=== PATIENT | male | born 1970 | race Caucasian/White ===

== ENCOUNTER 2017-11-14 12:25 | Emergency (ER) | payer SELFPAY ==
[~2017-11-14] VITALS: Ht 177.8 cm; Wt 70.5 kg
[~2017-11-14 12:25] MED LIST: BACT800T5 PO; IBUP-232 PO; VENTAER INH
[2017-11-14 12:38] VITALS: BP 165/98; PULSE 74; RESP 16; TEMP 98.6; O2SAT 98
--- NOTE | 2017-11-14 12:48 | PD ---
HPI Chief Complaint: Hypertension Time Seen by Provider: 12:43 Travel History International Travel<30 days: No Contact w/Intl Traveler<30days: No Traveled to known affect area: No History of Present Illness HPI Patient stated that approximately 2 years ago he was diagnosed with hypertension however after he went on weight loss program he was told he no longer needed to be taking lisinopril. Now over the last month or so he has noted when he checks his blood pressures routinely that he has been elevated in the 160s or so systolic and is concerned that he needs to get restarted on medication. He has denied any active symptoms. No alleviating or aggravating factors. No associated factors such as fever, cough, chest pain, shortness of breath, chest tightness, flank pain, abdominal pain, nausea, vomiting or diarrhea. No known drug allergy Past medical history significant for asthma, hepatitis C, smoking history one pack a day, substance abuse opiates amphetamines and cocaine. PFSH Past Medical History Asthma: Yes Diminished Hearing: No Hepatitis: Yes (HEP C) Respiratory: Yes (ASTHMA) Immunizations Current: Yes Social History Alcohol Use: Yes (DAILY) Tobacco Use: Yes (1 PPD) Substance Use: Yes (OPIATES, AMPHETAMINES, COCAINE) Allergies-Medications (Allergen,Severity, Reaction): Coded Allergies: No Known Allergies (Unverified Adverse Reaction, Unknown, 11/14/17) Reported Meds & Prescriptions Reported Meds & Active Scripts Active Reported Ventolin Hfa 18 GM Inh (Albuterol Sulfate) 90 Mcg/Act Aer 2 Puff INH Q4H PRN Review of Systems Except as stated in HPI: all other systems reviewed are Neg General / Constitutional: No: Fever Eyes: No: Visual changes HENT: No: Headaches Cardiovascular: No: Chest Pain or Discomfort Respiratory: No: Shortness of Breath Gastrointestinal: No: Abdominal Pain Genitourinary: No: Dysuria Musculoskeletal: No: Pain Skin: No Rash Neurologic: No: Weakness Psychiatric: No: Depression Endocrine: No: Polydipsia Hematologic/Lymphatic: No: Easy Bruising Physical Exam Narrative GENERAL: Well-nourished, well-developed patient in no apparent distress. SKIN: Warm and dry. HEAD: Atraumatic. Normocephalic. EYES: Pupils equal and round. No scleral icterus. No injection or drainage. ENT: No nasal bleeding or discharge. Mucous membranes pink and moist. NECK: Trachea midline. No JVD. CARDIOVASCULAR: Regular rate and rhythm. no rubs or gallops RESPIRATORY: No accessory muscle use. Clear to auscultation. Breath sounds equal bilaterally. GASTROINTESTINAL: Abdomen soft, non-tender, nondistended. No rebound or guarding MUSCULOSKELETAL: Extremities without clubbing, cyanosis, or edema. No obvious deformities. NEUROLOGICAL: Awake and alert. No obvious cranial nerve deficits. Motor grossly within normal limits. Five out of 5 muscle strength in the arms and legs. Normal speech. PSYCHIATRIC: Appropriate mood and affect; insight and judgment normal. Data Data Last Documented VS Vital Signs Date Time Temp Pulse Resp B/P (MAP) Pulse Ox O2 Delivery O2 Flow Rate FiO2 11/14/17 13:02 70 16 155/97 (116) 99 Room Air 11/14/17 12:38 98.6 Orders Orders Complete Blood Count With Diff (11/14/17 12:48) Comprehensive Metabolic Panel (11/14/17 12:48) Clonidine (Catapres) (11/14/17 13:00) Labs Laboratory Tests Test 11/14/17 13:01 White Blood Count 6.4 TH/MM3 Red Blood Count 4.68 MIL/MM3 Hemoglobin 16.0 GM/DL Hematocrit 45.3 % Mean Corpuscular Volume 97.0 FL Mean Corpuscular Hemoglobin 34.3 PG Mean Corpuscular Hemoglobin Concent 35.4 % Red Cell Distribution Width 14.4 % Platelet Count 155 TH/MM3 Mean Platelet Volume 9.0 FL Neutrophils (%) (Auto) 47.9 % Lymphocytes (%) (Auto) 36.6 % Monocytes (%) (Auto) 8.0 % Eosinophils (%) (Auto) 7.0 % Basophils (%) (Auto) 0.5 % Neutrophils # (Auto) 3.1 TH/MM3 Lymphocytes # (Auto) 2.4 TH/MM3 Monocytes # (Auto) 0.5 TH/MM3 Eosinophils # (Auto) 0.5 TH/MM3 Basophils # (Auto) 0.0 TH/MM3 CBC Comment DIFF FINAL Differential Comment Blood Urea Nitrogen 9 MG/DL Creatinine 0.75 MG/DL Random Glucose 124 MG/DL Total Protein 8.0 GM/DL Albumin 3.4 GM/DL Calcium Level 8.3 MG/DL Alkaline Phosphatase 63 U/L Aspartate Amino Transf (AST/SGOT) 60 U/L Alanine Aminotransferase (ALT/SGPT) 142 U/L Total Bilirubin 0.3 MG/DL Sodium Level 141 MEQ/L Potassium Level 3.8 MEQ/L Chloride Level 109 MEQ/L Carbon Dioxide Level 23.4 MEQ/L Anion Gap 9 MEQ/L Estimat Glomerular Filtration Rate 112 ML/MIN MDM Medical Decision Making Medical Screen Exam Complete: Yes Emergency Medical Condition: Yes Medical Record Reviewed: Yes Differential Diagnosis Renal failure versus electrolyte issues versus liver failure Narrative Course CBC shows no leukocytosis, no anemia, no left shift, normal platelet count Electrolytes are all within normal limits, Normal kidney function noted. Mild elevations of AST 60 and ALT 142. However there is no elevated bilirubin or alk phos. Patient tolerated p.o., is doing well and tolerating the one-time clonidine that was given. His blood pressure has corrected and improved. Patient will be discharged with a prescription to restart his lisinopril and to follow-up with [facility] as an outpatient Diagnosis Primary Impression: Hypertension Additional Impression: Medication refill Patient Instructions: General Instructions, Hypertension (DC) Scripts Albuterol 6.7 GM Inh (Proventil Hfa 6.7 GM Inh) 90 Mcg/Act Aer 1 PUFF INH Q4H Y for SHORTNESS OF BREATH, #1 INHALER 0 Refills Prov: Nav Contreras MD 11/14/17 Lisinopril (Lisinopril) 20 Mg Tab 20 MG PO DAILY, #30 TAB 1 Refill Prov: Nav Contreras MD 11/14/17 Disposition: 01 DISCHARGE HOME Condition: Stable Nav Contreras MD November 14, 2017 12:48
[2017-11-14] MEDS ORDERED: cloNIDine HCL 0.1 MG TAB PO ONE (13:00)
[2017-11-14 13:02] VITALS: BP 155/97; PULSE 70; RESP 16; O2SAT 99
[2017-11-14 13:14] LABS: AUTOMATED NEUTROPHIL # 3.1 TH/MM3 (1.8-7.7); BASOPHIL % 0.5 % (0.0-2.0); EOSINOPHIL # 0.5 TH/MM3 (0-0.4); HEMATOCRIT 45.3 % (39.0-51.0); LYMPH % 36.6 % (9.0-44.0); LYMPHOCYTE # 2.4 TH/MM3 (1.0-4.8); MEAN CORPUSCULAR HEMOGLOBIN 34.3 PG (27.0-34.0); MEAN CORPUSCULAR HGB CONC 35.4 % (32.0-36.0); MONOCYTE # 0.5 TH/MM3 (0-0.9); NEUT % 47.9 % (16.0-70.0); PLATELET COUNT 155 TH/MM3 (150-450); RED BLOOD COUNT 4.68 MIL/MM3 (4.50-5.90); RED CELL DISTRIBUTION WIDTH 14.4 % (11.6-17.2); WHITE BLOOD COUNT 6.4 TH/MM3 (4.0-11.0)
[2017-11-14 13:36] LABS: ALKALINE PHOSPHATASE 63 U/L (45-117); TOTAL BILIRUBIN ADULT 0.3 MG/DL (0.2-1.0)
[2017-11-14 13:42] LABS: ALBUMIN 3.4 GM/DL (3.4-5.0); ALT (GPT) 142 U/L (12-78); AST (GOT) 60 U/L (15-37); BICARBONATE 23.4 MEQ/L (21.0-32.0); BLOOD UREA NITROGEN 9 MG/DL (7-18); CALCIUM 8.3 MG/DL (8.5-10.1); CHLORIDE 109 MEQ/L (98-107); CREATININE 0.75 MG/DL (0.60-1.30); GLOMERULAR FILTRATION RATE 112 ML/MIN (>89); GLUCOSE,RANDOM 124 MG/DL (74-106); SODIUM (NA) 141 MEQ/L (136-145)
[2017-11-14] MEDS ORDERED: ALBU6.7H INH (14:24)
[2017-11-14] MEDS ORDERED: LISI-515 PO (14:24)
[2017-11-14 14:43] VITALS: BP 137/86
== END 2017-11-14 15:08 | disposition home or self-care (01) ==
LOC: NEPD 12:25
DX: I10 Essential (primary) hypertension (principal); J45.909 Unspecified asthma, uncomplicated; F17.200 Nicotine dependence, unspecified, uncomplicated; Z76.0 Encounter for issue of repeat prescription
CPT/HCPCS: 80053; 85025; 99283